=== PATIENT | female | born 1975 | race Caucasian/White ===

== ENCOUNTER 2019-04-03 07:27 | Emergency (ER) | payer OTHER ==
[~2019-04-03] VITALS: Ht 152.4 cm; Wt 99.8 kg
[~2019-04-03 07:27] MED LIST: ATENOLOL50 MG; DICY10CA; INDOCIN25 MG; MEDROLPACK PO; PREVACID15 MG
== END 2019-04-03 12:26 | disposition home or self-care (01) ==
LOC: ER 07:27
DX: N93.8 Other specified abnormal uterine and vaginal bleeding (principal); D64.9 Anemia, unspecified